=== PATIENT | female | born 2000 | race Caucasian/White ===

== ENCOUNTER 2023-11-27 15:08 | Emergency (ER) | payer MEDICAID ==
[~2023-11-27] VITALS: Ht 162.6 cm; Wt 56.8 kg
[2023-11-27 15:11] VITALS: BP 126/76; PULSE 104; TEMP 97.9
== END 2023-11-27 18:07 | disposition home or self-care (01) ==
LOC: COL.ER 15:08
DX: G35 Multiple sclerosis (principal); Z91.040 Latex allergy status